=== PATIENT | male | born 2000 | race Hispanic/Latino ===

== ENCOUNTER 2023-03-05 09:16 | Emergency (ER) | payer OTHER ==
--- OUTSIDE RECORDS SUMMARY | 2023-03-05 09:23 | XMS REPORT | Continuity of Care Document ---
:2000 Author Organization [facility] Address [address] [place] [address] Care Team Providers Name Role Phone ANABEL RAMOS Attending Clinician Unavailable Christine Singh PA-C Attending Clinician CHRISTINE SINGH Attending Clinician Unavailable Doctor Unassigned, [place] Attending Clinician Unavailable Payers Payer Name Policy Type Policy Number Effective Date Expiration Date [facility] [id number] 2015 CHOICE MEDICAID 00:00:00 Problems This patient has no known problems. Allergies, Adverse Reactions, Alerts Allergy Allergy Status Severity Reaction(s) Onset Inactive Treating Comm ents Source Name Type Date Date Clinician NO KNOWN Drug Active Univers ALLERGIE Class ity of [facility] Social History Social Habit Start Date Stop Date Quantity Comments Source [facility] Smoking Status Start Date Stop Date Source Never smoker [facility] Medications Ordered Filled Start Stop Current Ordering Indication Dosage Frequency Signature Comments Components Source Medication Medication Date Date Medication? Clinician (SIG) Name Name No known No Univers medications [facility] No known No Univers medications [facility] No known No Univers medications [facility] Immunizations Ordered Immunization Filled Immunization Date Status Commen ts Source Name Name Meningococcal B, OMV 2020-04-13 Completed Univ ersity of 00:00:00 [facility] Meningococcal B, OMV 2020-04-13 Completed Univ ersity of 00:00:00 [facility] Meningococcal 2019-04-01 Completed University of Polysaccharide 00:00:00 [place] [facility] (groups A, C, Y and Branc h W-135) conjugate vaccine (MCV4P) Meningococcal B, OMV 2019-04-01 Completed Univ ersity of 00:00:00 [facility] Meningococcal 2019-04-01 Completed University of Polysaccharide 00:00:00 [place] [facility] (groups A, C, Y and Branc h W-135) conjugate vaccine (MCV4P) Meningococcal B, OMV 2019-04-01 Completed Univ ersity of 00:00:00 [facility] Meningococcal 2019-04-01 Completed University of Polysaccharide 00:00:00 [place] [facility] (groups A, C, Y and Branc h W-135) conjugate vaccine (MCV4P) Meningococcal B, OMV 2019-04-01 Completed Univ ersity of 00:00:00 [facility] HPV9 2016-03-21 Completed University of 00:00:00 [facility] HPV9 2016-03-21 Completed University of 00:00:00 [facility] HPV9 2016-03-21 Completed University of 00:00:00 [facility] HPV9 2015-04-19 Completed University of 00:00:00 [facility] HPV9 2015-04-19 Completed University of 00:00:00 [facility] HPV9 2015-04-19 Completed University of 00:00:00 [facility] TDAP (ADACEL) VACCINE 2014 Completed Uni versity of 00:00:00 [facility] HPV 2014 Completed University of 00:00:00 [facility] Meningococcal 2014 Completed University of Polysaccharide 00:00:00 [place] [facility] (groups A, C, Y and Branc h W-135) conjugate vaccine (MCV4P) TDAP (ADACEL) VACCINE 2014 Completed Uni versity of 00:00:00 [facility] HPV 2014 Completed University of 00:00:00 [facility] Meningococcal 2014 Completed University of Polysaccharide 00:00:00 [place] [facility] (groups A, C, Y and Branc h W-135) conjugate vaccine (MCV4P) TDAP (ADACEL) VACCINE 2014 Completed Uni versity of 00:00:00 [facility] HPV 2014 Completed University of 00:00:00 [facility] Meningococcal 2014 Completed University of Polysaccharide 00:00:00 [place] [facility] (groups A, C, Y and Branc h W-135) conjugate vaccine (MCV4P) Influenza Virus 2011-09-15 Completed Universit y of Vaccine 00:00:00 [facility] Varicella 2011-09-15 Completed University of (varivax)(chicken 00:00:00 [place] [facility] Influenza Virus 2011-09-15 Completed Universit y of Vaccine 00:00:00 [facility] Varicella 2011-09-15 Completed University of (varivax)(chicken 00:00:00 [place] [facility] pox[facility] Influenza Virus 2011-09-15 Completed Universit y of Vaccine 00:00:00 [facility] Varicella 2011-09-15 Completed University of (varivax)(chicken 00:00:00 [place] [facility] HEPATITIS A 2006-04-22 Completed University of 00:00:00 [facility] MMR 2006-04-22 Completed University of 00:00:00 [facility] Polio (IPV/OPV) 2006-04-22 Completed Universit y of 00:00:00 [facility] HEPATITIS A 2006-04-22 Completed University of 00:00:00 [facility] MMR 2006-04-22 Completed University of 00:00:00 [facility] Polio (IPV/OPV) 2006-04-22 Completed Universit y of 00:00:00 [facility] HEPATITIS A 2006-04-22 Completed University of 00:00:00 [facility] MMR 2006-04-22 Completed University of 00:00:00 [facility] Polio (IPV/OPV) 2006-04-22 Completed Universit y of 00:00:00 [facility] DTAP 2005-11-20 Completed University of 00:00:00 [facility] DTAP 2005-11-20 Completed University of 00:00:00 [facility] DTAP 2005-11-20 Completed University of 00:00:00 [facility] HEPATITIS A 2005-06-26 Completed University of 00:00:00 [facility] HEPATITIS A 2005-06-26 Completed University of 00:00:00 [facility] HEPATITIS A 2005-06-26 Completed University of 00:00:00 [facility] Pneumococcal 13 2004-06-01 Completed Universit y of Conjugate, PCV13 00:00:00 [place] [facility] (Prevnar 13) [facility] Pneumococcal 13 2004-06-01 Completed Universit y of Conjugate, PCV13 00:00:00 [place] [facility] (Prevnar 13) [facility] Pneumococcal 13 2004-06-01 Completed Universit y of Conjugate, PCV13 00:00:00 [place] [facility] (Prevnar 13) Branch DTAP 2004-01-27 Completed University of 00:00:00 [facility] HIB 4 Dose Schedule 2004-01-27 Completed Unive rsity of 00:00:00 [facility] MMR 2004-01-27 Completed University of 00:00:00 [facility] DTAP 2004-01-27 Completed University of 00:00:00 [facility] HIB 4 Dose Schedule 2004-01-27 Completed Unive rsity of 00:00:00 [facility] MMR 2004-01-27 Completed University of 00:00:00 [facility] DTAP 2004-01-27 Completed University of 00:00:00 [facility] HIB 4 Dose Schedule 2004-01-27 Completed Unive rsity of 00:00:00 [facility] MMR 2004-01-27 Completed University of 00:00:00 [facility] Polio (IPV/OPV) 2003-03-25 Completed Universit y of 00:00:00 [facility] Varicella 2003-03-25 Completed University of (varivax)(chicken 00:00:00 [facility] edical pox) Branch Polio (IPV/OPV) 2003-03-25 Completed Universit y of 00:00:00 [facility] Varicella 2003-03-25 Completed University of (varivax)(chicken 00:00:00 [facility] edical pox) Branch Polio (IPV/OPV) 2003-03-25 Completed Universit y of 00:00:00 [facility] Varicella 2003-03-25 Completed University of (varivax)(chicken 00:00:00 [place] [facility] pox) [facility] Hep B, Adol or Pedi 2002 Completed Unive rsity of Dosage 00:00:00 [facility] Pneumococcal 13 2002 Completed Universit y of Conjugate, PCV13 00:00:00 [place] [facility] (Prevnar 13) Branch Hep B, Adol or Pedi 2002 Completed Unive rsity of Dosage 00:00:00 [facility] Pneumococcal 13 2002 Completed Universit y of Conjugate, PCV13 00:00:00 [place] [facility] (Prevnar 13) Branch Hep B, Adol or Pedi 2002 Completed Unive rsity of Dosage 00:00:00 [facility] Pneumococcal 13 2002 Completed Universit y of Conjugate, PCV13 00:00:00 [place] [facility] (Prevnar 13) Branch DTAP 2002 Completed University of 00:00:00 [facility] Pneumococcal 13 2002 Completed Universit y of Conjugate, PCV13 00:00:00 [place] [facility] (Prevnar 13) Branch DTAP 2002 Completed University of 00:00:00 [facility] Pneumococcal 13 2002 Completed Universit y of Conjugate, PCV13 00:00:00 [place] [facility] (Prevnar 13) Branch DTAP 2002 Completed University of 00:00:00 [facility] Pneumococcal 13 2002 Completed Universit y of Conjugate, PCV13 00:00:00 [facility] dical (Prevnar 13) Branch HIB 4 Dose Schedule 2002 Completed Unive rsity of 00:00:00 [facility] HIB 4 Dose Schedule 2002 Completed Unive rsity of 00:00:00 [facility] HIB 4 Dose Schedule 2002 Completed Unive rsity of 00:00:00 [facility] DTAP 2002 Completed University of 00:00:00 [facility] HIB 4 Dose Schedule 2002 Completed Unive rsity of 00:00:00 [facility] Polio (IPV/OPV) 2002 Completed Universit y of 00:00:00 [facility] DTAP 2002 Completed University of 00:00:00 [facility] HIB 4 Dose Schedule 2002 Completed Unive rsity of 00:00:00 [facility] Polio (IPV/OPV) 2002 Completed Universit y of 00:00:00 [facility] DTAP 2002 Completed University of 00:00:00 [facility] HIB 4 Dose Schedule 2002 Completed Unive rsity of 00:00:00 [facility] Polio (IPV/OPV) 2002 Completed Universit y of 00:00:00 [facility] DTAP 2002 Completed University of 00:00:00 [facility] HIB 4 Dose Schedule 2002 Completed Unive rsity of 00:00:00 [facility] Polio (IPV/OPV) 2002 Completed Universit y of 00:00:00 [facility] DTAP 2002 Completed University of 00:00:00 [facility] HIB 4 Dose Schedule 2002 Completed Unive rsity of 00:00:00 [facility] Polio (IPV/OPV) 2002 Completed Universit y of 00:00:00 [facility] DTAP 2002 Completed University of 00:00:00 [facility] HIB 4 Dose Schedule 2002 Completed Unive rsity of 00:00:00 [facility] Polio (IPV/OPV) 2002 Completed Universit y of 00:00:00 [facility] Hep B, Adol or Pedi 2002 Completed Unive rsity of Dosage 00:00:00 [facility] Hep B, Adol or Pedi 2002 Completed Unive rsity of Dosage 00:00:00 [facility] Hep B, Adol or Pedi 2002 Completed Unive rsity of Dosage 00:00:00 [facility] Hep B, Adol or Pedi 2002 Completed Unive rsity of Dosage 00:00:00 [facility] Hep B, Adol or Pedi 2002 Completed Unive rsity of Dosage 00:00:00 [facility] Hep B, Adol or Pedi 2002 Completed Unive rsity of Dosage 00:00:00 [facility] Vital Signs Vital Name Observation Time Observation Value Comments Source Systolic blood 2020-04-13 18:18:00 142 mm[Hg] Univer sity of pressure [facility] Diastolic blood 2020-04-13 18:18:00 87 mm[Hg] Unive rsity of pressure [facility] Heart rate 2020-04-13 18:17:00 75 /min [facility] Body temperature 2020-04-13 18:17:00 36.61 Elisa [facility] Respiratory rate 2020-04-13 18:17:00 17 /min [facility] Body height 2020-04-13 18:17:00 182 cm [facility] Body weight 2020-04-13 18:17:00 70.761 kg [facility] BMI 2020-04-13 18:17:00 21.36 kg/m2 Universi [facility] Oxygen saturation in 2020-04-13 18:17:00 99 /min University Arterial blood by [facility] Pulse oximetry Branch Procedures Procedure Date / Time Performing Clinician Source Performed MENINGOCOCCAL B VACCINE, 2020-04-13 18:37:00 Christine Singh [facility] OMV, 2 DOSE, IM [facility] ASSIGNMENT OF BENEFITS 2020-04-13 18:06:59 Doctor Unassigned, No [facility] Name [facility] Encounters Start End Encounter Admission Attending Care Care Encounter Source Date/Time Date/Time Type Type Clinicians Facility Department ID 2022-07-25 2022-07-25 Outpatient SFA SFA [id number] [place] 16:39:59 16:39:59 [id number] F Timur 2020-12-24 2020-12-24 Outpatient [facility] [id number] Univers 19:35:00 19:35:00 ity [facility] 2020-12-03 2020-12-03 [facility] [id number] Univers 19:15:00 19:15:00 ANABEL ity [facility] 2020-04-13 2020-04-13 Office [facility] [id number] Univers 13:07:40 13:49:05 Visit , Christine Ramirez [id number] it y of Pediatric [id number] [facility] [id number] [facility] [address] 2020-04-13 2020-04-13 Outpatient Guerda SINGH [facility] [id number] Univers 13:00:00 13:00:00 , CHRISTINE ity of [facility] 2020-04-13 2020-04-13 Orders Doctor DANIELLE [id number] Univers 00:00:00 00:00:00 Only Unassigned, ISSA [id number] ity of [place] [facility] [id number] [place] as [id number] [facility] [address] Branch Results This patient has no known results.
[2023-03-05] MEDS ORDERED: NA CHLORIDE 0.9% 1,000 ML ONE (10:03)
[2023-03-05 10:08] LABS: Absolute Lymphocytes (CBC) 1.3 K/uL (0.7-4.9); Hematocrit 45.3 % (39.6-49.0); Lymphocytes % 11.2 % (15.3-44.8); MCV 89.2 fL (80-100); MPV 9.3 fL (7.6-11.3); RBC Red Blood Cell Count 5.08 M/uL (4.33-5.43)
[2023-03-05 10:11] LABS: Protime INR 0.94
[2023-03-05 10:17] LABS: Specific Gravity > 1.030 (1.005-1.030); Urine Bacteria <20 /HPF (<20); Urine Bilirubin NEGATIVE (Negative); Urine Blood Negative (Negative); Urine Clarity Clear (Clear); Urine Color Yellow (Yellow); Urine Glucose NEGATIVE (Negative); Urine Mucus 1+ /HPF (None Seen); Urine Protein TRACE (Negative); Urine RBC <5 /HPF (None Seen); Urine Urobilinogen Normal (Normal); Urine pH 6.5 (5.0-7.0)
--- NOTE | 2023-03-05 10:25 | RAD REPORT ---
EXAM DESCRIPTION: CT - Head Brain Wo Cont - 03/05/2023 10:03 am CLINICAL HISTORY: near syncope;Weakness COMPARISON: No comparisons TECHNIQUE: Noncontrast head CT images ad were obtained without IV contrast. Multiplanar reformats we re generated and reviewed. All CT scans are performed using dose optimization technique as appropriate and may include automated exposure control or mA/KV adjustment according to patient size. FINDINGS: No intracranial hemorrhage, mass, or edema. Midline structures are unremarkable. Normal ventricular caliber for age. Garza-white matter differentiation is preserved, without evidence of acute infarct. No abnormal extra- axial fluid collections. Mastoid air cells and visualized portions of the paranasal sinuses are clear. No acute bony findings. IMPRESSION: No evidence of an acute intracranial process. If there is clinical concern for acute ischemia, stroke protocol MRI would provide improved imaging a ssessment.
[2023-03-05 10:28] LABS: Magnesium 2.1 mg/dL (1.6-2.4); Potassium 3.4 mEq/L (3.5-5.1); Troponin High Sensitivity 3.1 pg/mL (<58.9)
--- NOTE | 2023-03-05 10:53 | RAD REPORT ---
EXAM DESCRIPTION: Eliud Single View03/05/2023 10:19 am CLINICAL HISTORY: near syncope COMPARISON: No comparisons TECHNIQUE: Portable AP view of the chest. FINDINGS: The lungs are clear. No pneumothorax or effusion. The cardiomediastinal contours are unre markable. IMPRESSION: No acute cardiopulmonary process.
[2023-03-05] MEDS ORDERED: POTASSIUM 25 MEQ EFFERV TAB ONE (11:18)
--- NOTE | 2023-03-05 11:51 | EDPHYS ---
Physician Documentation [facility] Name: Andre Dueñas Age: 22 yrs Sex: Male : 2000 Arrival Date: 03/05/2023 Time: 09:16 Bed 18 Private MD: ED Physician Levon Bowen HPI: 03/05 09:40 This 22 yrs old Male presents to ER via Ambulatory with complaints of Near cp Syncope. 09:40 The patient has experienced near-syncope, almost passed out, felt faint, felt generally cp weak. 09:40 Onset: The symptoms/episode began/occurred just prior to arrival. cp 09:40 Associated injury: The patient did not suffer any apparent associated injury. Patient cp reports while working outside [employer], started feeling numbness/tingling of lips, face and hands. Become weak all over, lightheaded and almost lost consciousness. Denies chest pain, denies abdominal pain, denies headache. Historical: - Allergies: 09:28 No Known Allergies; aa5 - Home Meds: 09:28 None [Active]; aa5 - PMHx: 09:28 None; aa5 - PSHx: 09:28 None; aa5 - Immunization history:: Adult Immunizations unknown. - Social history:: Smoking status: Patient denies any tobacco usage or history of. ROS: 09:45 Constitutional: Negative for body aches, chills, fever, poor PO intake. cp 09:45 Eyes: Negative for injury, pain, redness, and discharge. cp 09:45 Respiratory: Negative for cough, shortness of breath, wheezing. 09:45 ENT: Negative for drainage from ear(s), ear pain, sore throat, difficulty swallowing, cp difficulty handling secretions. 09:45 Cardiovascular: Negative for chest pain, palpitations. 09:45 Abdomen/GI: Negative for abdominal pain, vomiting, diarrhea, constipation. 09:45 Back: Negative for pain at rest, pain with movement. 09:45 Neuro: Positive for tingling, weakness, Negative for altered mental status, dizziness, headache. 09:45 : Negative for urinary symptoms. cp 09:45 All other systems are negative. Exam: 09:50 Constitutional: The patient appears in no acute distress, alert, awake, comfortable, cp non-diaphoretic, non-toxic, well developed, well nourished. 09:50 Head/Face: Normocephalic, atraumatic. cp 09:50 Eyes: Pupils: equal, round, and reactive to light and accomodation, Extraocular movements: intact throughout, Conjunctiva: normal, no exudate, no injection, Lids and lashes: appear normal, bilaterally. 09:50 ENT: External ear(s): are unremarkable, Nose: is normal, Mouth: Lips: moist, Oral mucosa: pink and intact, moist, Posterior pharynx: is normal, airway is patent, no erythema, no exudate. 09:50 Neck: ROM/movement: is normal, is supple, without pain, no range of motions limitations. 09:50 Chest/axilla: Inspection: normal. 09:50 Cardiovascular: Rate: normal, Rhythm: regular, Heart sounds: murmur, not appreciated, Edema: is not appreciated, JVD: is not appreciated. 09:50 Respiratory: the patient does not display signs of respiratory distress, Respirations: normal, no use of accessory muscles, no retractions, labored breathing, is not present, Breath sounds: are clear throughout, no decreased breath sounds, no stridor, no wheezing. 09:50 Abdomen/GI: Inspection: abdomen appears normal, Palpation: abdomen is soft and non-tender, in all quadrants. 09:50 Back: pain, is absent, ROM is normal. 09:50 Neuro: Orientation: to person, place \T\ time. Mentation: is normal, Cerebellar function: is grossly normal, Motor: moves all fours, strength is normal, Sensation: is normal. 10:17 ECG was reviewed by the Attending Physician. cp Vital Signs: 09:23 BP 151 / 102; Pulse 91; Resp 16 S; Temp 98.8(O); Pulse Ox 100% on R/A; Weight 86.18 kg aa5 (R); Height 6 ft. 0 in. (R); 10:20 BP 136 / 81 LA; Pulse 98; db 10:24 BP 132 / 86; Pulse 87 RA; db 12:14 BP 127 / 78; Pulse 85; Resp 16; Pulse Ox 100% on R/A; db 09:23 Body Mass Index 25.77 (86.18 kg, 182.88 cm) aa5 MDM: 09:28 Patient medically screened. cp 10:00 Differential Diagnosis: cardiac arrhythmia, drug effect, dehydration. cp 11:50 Data reviewed: vital signs, nurses notes, lab test result(s), EKG, radiologic studies, cp CT scan, plain films. 11:50 Consideration of Admission/Observation Escalation of care including cp admission/observation considered. I considered the following discharge prescriptions or medication management in the emergency department Medications were administered in the Emergency Department. See MAR. Independent interpretation of the following test(s) in the Emergency Department EKG: See my EKG interpretation above X-Ray: My interpretation is chest xray negative for infiltrates. Counseling: I had a detailed discussion with the patient and/or guardian regarding: the historical points, exam findings, and any diagnostic results supporting the discharge/admit diagnosis, lab results, radiology results, to return to the emergency department if symptoms worsen or persist or if there are any questions or concerns that arise at home. Response to treatment: the patient's symptoms have markedly improved after treatment, and as a result, I will discharge patient. ED course: Patient denies family HX of significant cardiac disease. Will discharge to home and recommend f/u with family physician. 03/05 09:36 Order name: Basic Metabolic Panel; Complete Time: 10:29 03/05 10:29 Interpretation: Normal except: K 3.4. 03/05 09:36 Order name: CBC with Diff; Complete Time: 10:29 03/05 10:29 Interpretation: Normal except: WBC 11.30; MAYELA% 84.0; LYM% 11.2; NEUT A 9.5. 03/05 09:36 Order name: Magnesium; Complete Time: 10:29 03/05 09:36 Order name: PT-INR; Complete Time: 10:29 cp 03/05 09:36 Order name: Troponin HS; Complete Time: 10:29 03/05 10:30 Interpretation: Troponin HS 3.1; Reviewed. 03/05 09:40 Order name: CK; Complete Time: 10:29 03/05 09:40 Order name: Urinalysis W/Microscopic; Complete Time: 10:29 03/05 10:30 Interpretation: Normal except: Urine SG > 1.030; UKET 1+; UPROT TRACE. 03/05 09:36 Order name: XRAY Chest (1 view); Complete Time: 10:56 03/05 10:56 Interpretation: Report review. 03/05 09:40 Order name: CT Head Brain wo Cont; Complete Time: 10:29 cp 03/05 10:30 Interpretation: Report reviewed. 03/05 09:36 Order name: EKG; Complete Time: 09:36 cp 03/05 09:36 Order name: Cardiac monitoring; Complete Time: 09:58 cp 03/05 09:36 Order name: EKG - Nurse/Tech; Complete Time: 10:21 cp 03/05 09:36 Order name: IV Saline Lock; Complete Time: 09:57 cp 03/05 09:36 Order name: Labs collected and sent; Complete Time: 09:57 cp 03/05 09:36 Order name: O2 Per Protocol; Complete Time: 09:57 cp 03/05 09:36 Order name: O2 Sat Monitoring; Complete Time: 09:57 cp 03/05 09:40 Order name: Blood Pressure Recheck: bilateral upper extremity; Complete Time: 10:28 cp EC:17 Rate is 81 beats/min. Rhythm is regular. ND interval is normal. QRS interval is cp prolonged at 104 msec. QT interval is normal. T waves are Inverted in lead aVR. Interpreted by me. Reviewed by me. Administered Medications: 09:56 Drug: NS 0.9% IV 1000 ml Route: IV; Rate: 1000 ml/hr; Site: right antecubital; db 12:15 Follow up: Response: No adverse reaction; IV Status: Completed infusion; IV Intake: db 1000ml 11:11 Drug: Potassium PO Effervescent Tablet 25 mEq Route: PO; db 12:15 Follow up: Response: No adverse reaction db Disposition: 15:01 Co-signature as Attending Physician, Levon Bowen MD I agree with the assessment and kdr plan of care. Disposition Summary: 03/05/23 11:51 Discharge Ordered Location: Home cp Problem: new cp Symptoms: have improved cp Condition: Stable cp Diagnosis - Syncope Near cp Followup: cp - With: Private Physician - When: 2 - 3 days - Reason: Recheck today's complaints Discharge Instructions: - Discharge Summary Sheet cp - Near-Syncope cp - Hypokalemia cp Forms: - Medication Reconciliation Form cp - Thank You Letter cp - Antibiotic Education cp - Prescription Opioid Use cp - Work release form db - Family Work Release db Signatures: Dispatcher [employer] Levon He MD MD kdr Calderon, Audri RN RN aa5 Kin Rivero PA PA cp Benton, Danielle RN RN db
--- NOTE | 2023-03-05 11:51 | ER ---
Nurse's Notes [facility] Name: Andre Dueñas Age: 22 yrs Sex: Male : 2000 Arrival Date: 03/05/2023 Time: 09:16 Bed 18 Private MD: Diagnosis: Syncope Near Presentation: 03/05 09:23 Chief complaint: Patient states: "I was working outside and I started feeling like my aa5 face and my hands were numb and lightheaded". Pt reports near syncopal episode. 09:23 Coronavirus screen: At this time, the client does not indicate any symptoms associated aa5 with coronavirus-19. Ebola Screen: Patient denies travel to an Ebola-affected area in the 21 days before illness onset. Initial Sepsis Screen: Does the patient meet any 2 criteria? No. Patient's initial sepsis screen is negative. Does the patient have a suspected source of infection? No. Patient's initial sepsis screen is negative. Risk Assessment: Do you want to hurt yourself or someone else? Patient reports no desire to harm self or others. Onset of symptoms was March 05, 2023. 09:23 Acuity: TAMMY 3 aa5 09:23 Method Of Arrival: Ambulatory aa5 Triage Assessment: 12:13 General: Appears in no apparent distress. db Historical: - Allergies: 09:28 No Known Allergies; aa5 - Home Meds: 09:28 None [Active]; aa5 - PMHx: 09:28 None; aa5 - PSHx: 09:28 None; aa5 - Immunization history:: Adult Immunizations unknown. - Social history:: Smoking status: Patient denies any tobacco usage or history of. Screenin:25 [facility] ED Fall Risk Assessment (Adult) History of falling in the last 3 months, db including since admission No falls in past 3 months (0 pts) Confusion or Disorientation No (0 pts) Intoxicated or Sedated No (0 pts) Impaired Gait No (0 pts) Mobility Assist Device Used No (0 pt) Altered Elimination No (0 pt) Score/Fall Risk Level 0 - 2 = Low Risk Oriented to surroundings, Maintained a safe environment. 10:25 Abuse screen: Denies threats or abuse. Denies injuries from another. Nutritional db screening: No deficits noted. Tuberculosis screening: No symptoms or risk factors identified. Assessment: 09:40 Reassessment: Patient appears in no apparent distress at this time. Patient and/or db family updated on plan of care and expected duration. Pain level reassessed. Patient is alert, oriented x 3, equal unlabored respirations, skin warm/dry/pink. working outside and felt like was going to pass out. General: Appears in no apparent distress. comfortable, Behavior is calm, cooperative. Pain: Denies pain. Neuro: Level of Consciousness is awake, alert, obeys commands, Oriented to person, place, time, situation, Speech is normal. Respiratory: Airway is patent Respiratory effort is even, unlabored, Respiratory pattern is regular, symmetrical. 09:56 Reassessment: Patient appears in no apparent distress at this time. patient to CT. db 11:00 Reassessment: Patient appears in no apparent distress at this time. Patient and/or db family updated on plan of care and expected duration. Pain level reassessed. Patient is alert, oriented x 3, equal unlabored respirations, skin warm/dry/pink. 12:13 Reassessment: Patient appears in no apparent distress at this time. Patient and/or db family updated on plan of care and expected duration. Pain level reassessed. Patient is alert, oriented x 3, equal unlabored respirations, skin warm/dry/pink. General: Appears in no apparent distress. comfortable. Vital Signs: 09:23 BP 151 / 102; Pulse 91; Resp 16 S; Temp 98.8(O); Pulse Ox 100% on R/A; Weight 86.18 kg aa5 (R); Height 6 ft. 0 in. (R); 10:20 BP 136 / 81 LA; Pulse 98; db 10:24 BP 132 / 86; Pulse 87 RA; db 12:14 BP 127 / 78; Pulse 85; Resp 16; Pulse Ox 100% on R/A; db 09:23 Body Mass Index 25.77 (86.18 kg, 182.88 cm) aa5 Vitals: 10:24 Cardiac Rhythm Assessment Regular Sinus rhythm. ED Course: 09:21 Patient arrived in ED. im 09:23 Arm band placed on. aa5 09:26 Kin Rivero PA is PHCP. cp 09:26 Levon Bowen MD is Attending Physician. cp 09:29 Triage completed. aa5 09:45 Inserted saline lock: 20 gauge in right antecubital area, using aseptic technique. db Blood collected. 09:56 Marianela Raza, RN is Primary Nurse. db 10:04 CT Head Brain wo Cont In Process Unspecified. EDMS 10:21 XRAY Chest (1 view) In Process Unspecified. EDMS 10:25 Patient has correct armband on for positive identification. Bed in low position. Call db light in reach. Side rails up X 1. Client placed on continuous cardiac and pulse oximetry monitoring. NIBP monitoring applied. 12:14 No provider procedures requiring assistance completed. IV discontinued, intact, db bleeding controlled, No redness/swelling at site. Administered Medications: 09:56 Drug: NS 0.9% IV 1000 ml Route: IV; Rate: 1000 ml/hr; Site: right antecubital; db 12:15 Follow up: Response: No adverse reaction; IV Status: Completed infusion; IV Intake: db 1000ml 11:11 Drug: Potassium PO Effervescent Tablet 25 mEq Route: PO; db 12:15 Follow up: Response: No adverse reaction db Medication: 12:14 VIS not applicable for this client. db Intake: 12:15 IV: 1000ml; Total: 1000ml. db Outcome: 11:51 Discharge ordered by MD. cp 12:14 Discharged to home ambulatory, with family. db 12:14 Condition: stable 12:14 Discharge instructions given to patient, family, Instructed on discharge instructions, follow up and referral plans. 12:15 Patient left the ED. db Signatures: Dispatcher [employer] Justine Villagomez, RN RN aa5 Kin Rivero PA PA cp Marianela Raza, RN RN db Kasandra Pierce
[2023-03-05 12:59] VITALS: TEMP 98.8; O2SAT 100
[2023-03-05 13:02] VITALS: BP 127/78
--- NOTE | 2023-03-06 19:13 | EKG ---
Test Date: 2023-03-05 Test Time: 10:12:43 [employer]: SUJATA MEASUREMENT RESULTS: Intervals: Rate: 81 NE: 144 QRSD: 104 QT: 370 QTc: 429 [place]: P: 70 NE: 144 QRS: 55 T: 58 INTERPRETIVE STATEMENTS: Normal sinus rhythm with sinus arrhythmia Early repolarization Normal ECG Compared to ECG 04/20/2015 11:04:59 No significant changes Electronically Signed On 03-06-23 19:10:21 CDT by Shon Lambert
== END 2023-03-05 12:15 | disposition home or self-care (01) ==
LOC: ER 09:16
DX: R55 Syncope and collapse (principal)
CPT/HCPCS: 96361; 93005; 85025; 81001; 80048; 36415; 83735; 82550; 85610; 84484; 70450; 71045; 96360; 99284; J7030